=== PATIENT | male | born 1955 | race Caucasian/White ===

== ENCOUNTER 2020-12-14 07:45 | Day surgery (SDC) | payer OTHER, SELFPAY ==
[~2020-12-14] VITALS: Ht 190.5 cm; Wt 90.7 kg
[2020-12-14] MEDS ORDERED: CEFAZOLIN SOD 2 GM in D5W 50 ML IV ONE (08:00)
[2020-12-14] MEDS ORDERED: POLYMYXIN 500,000/BACIT.10,000 UNITS in NS IRR 1 L IR ONE (08:04)
[2020-12-14] MEDS ORDERED: WATER FOR IRRIGATION,STERILE 1,000 ML IRRIG.SOLN IR ONE (09:12)
[2020-12-14] MEDS ORDERED: NS IRRIG SOLN 1000 ML IR ONE (09:12)
[2020-12-14] MEDS ORDERED: HYDROmorphone 2 MG/ML VIAL IVP ONE (09:12)
[2020-12-14] MEDS ORDERED: ePHEDrine sulfate 50 MG/ML VIAL IM ONE (09:12)
[2020-12-14] MEDS ORDERED: METOCLOPRAMIDE HCL 10 MG/2 ML VIAL IVP ONE (09:12)
[2020-12-14] MEDS ORDERED: SEVOFLURANE 15 MIN GAS INH ONE (09:12)
[2020-12-14] MEDS ORDERED: LR 1,000 ML IV.SOLN IV ONE (09:12)
[2020-12-14] MEDS ORDERED: DEXAMETHASONE SOD PHOSPHATE 4 MG/ML VIAL IVP ONE (09:12)
[2020-12-14] MEDS ORDERED: BUPIVACAINE /EPINEPHRINE/PF 0.25% 30 ML VIAL INJ ONE (09:12)
[2020-12-14] MEDS ORDERED: GLYCOPYRROLATE 0.2 MG/ML VIAL IJ ONE (09:12)
[2020-12-14] MEDS ORDERED: BUPIVACAINE /EPINEPHRINE/PF 0.5% 30 ML VIAL INJ ONE (09:12)
[2020-12-14] MEDS ORDERED: PHENYLEPHRINE HCL 10 MG/ML VIAL (NEOSYNEPHRINE) IV ONE (09:12)
[2020-12-14] MEDS ORDERED: ROCURONIUM BROMIDE 10 MG/ML (ZEMURON) IV ONE (09:12)
[2020-12-14] MEDS ORDERED: PROPOFOL 200MG/ 20ML VIAL (DIPRIVAN) IV ONE (09:12)
[2020-12-14] MEDS ORDERED: HYDROcodone/ACETAMIN 5-325 MG TAB (NORCO/ VICODIN) PO PRN (13:45)
[2020-12-14] MEDS ORDERED: HYDROmorphone 1 MG INJ. 1 MG/ML CARTRIDGE IVP PRN ×2 (14:00)
[2020-12-14] MEDS ORDERED: ePHEDrine sulfate 50 MG/ML VIAL IVP PRN (14:00)
[2020-12-14] MEDS ORDERED: KETOROLAC TROMETHAMINE 30 MG VIAL IVP PRN (14:00)
[2020-12-14] MEDS ORDERED: ONDANSETRON HCL 4 MG/2 ML VIAL IVP PRN (14:00)
[2020-12-14 15:49] VITALS: BP_SYST 134
== END 2020-12-14 16:30 | disposition home or self-care (01) ==
LOC: SDS 07:45 → SMU 07:45 → SDS 16:30
PROVIDERS: ATTEND Surgery
DX: K40.20 Bilateral inguinal hernia, without obstruction or gangrene, not specified as recurrent (principal); K42.9 Umbilical hernia without obstruction or gangrene; Z79.899 Other long term (current) drug therapy; Z20.828 Contact with and (suspected) exposure to other viral communicable diseases
CPT/HCPCS: 49585; 49650; 74018; 88302; C1727; C1781; J0690; J1100; J1170; J2370; J2704; J2765; J3490 ×3; J7060; J7120; S2900; U0003